=== PATIENT | male | born 1980 | race Caucasian/White ===

== ENCOUNTER 2018-09-08 08:50 | Emergency (ER) | payer MEDICAID ==
[2018-09-08] MEDS: FLUORESCEIN STRIP RIGHT EYE (09:25)
[2018-09-08] MEDS: TETRACAINE 0.5% 4 ML OPH RIGHT EYE (09:25)
== END 2018-09-08 10:19 | disposition home or self-care (01) ==
LOC: FTE 08:50
DX: T15.12XA Foreign body in conjunctival sac, left eye, initial encounter (principal); X58.XXXA Exposure to other specified factors, initial encounter; Y92.9 Unspecified place or not applicable
CPT/HCPCS: 99283; Z7502